=== PATIENT | female | born 1975 | race Hispanic/Latino ===

== ENCOUNTER 2022-05-11 16:08 | Emergency (ER) | payer SELFPAY ==
[2022-05-11 16:21] VITALS: BP 176/117
--- NOTE | 2022-05-12 10:32 | Electrocardiograph Report ---
[facility] Test Date: 2022-05-11 Test Time: 16:24:57 Pat Name: LOPEZ KING Department: Room: Gender: F [employer]: AF : 1975 Requested By: RYAN INMAN Order Number: [id number] Reading MD: Negrito Strong Measurements Intervals [place] Rate: 140 P: 62 W[place]: 134 QRS: 28 QRSD: 88 T: 80 QT: 285 QTc: 436 Interpretive Statements Sinus tachycardia Supraventricular bigeminy Probable left atrial enlargement Minimal ST depression, diffuse leads No previous ECG available for comparison Electronically Signed On 05-12-2022 10:32:30 EDT by Negrito Strong
== END 2022-05-11 16:57 | disposition left against medical advice (07) ==
LOC: ED 16:08
DX: R20.2 Paresthesia of skin (principal); Z53.21 Procedure and treatment not carried out due to patient leaving prior to being seen by health care provider
CPT/HCPCS: 93005